=== PATIENT | male | born 1995 | race Caucasian/White ===

== ENCOUNTER 2020-10-05 03:24 | Outpatient (CLI) | payer BC, SELFPAY ==
[2020-10-05 12:53] LABS: Calculated LDL 90 mg/dL (<100); Cholesterol 187 mg/dL (<200); HDL Cholesterol 87 mg/dL (40-60); TSH 2.01 uIU/mL (0.36-3.74); Triglyceride 50 mg/dL (<150)
== END 2020-10-05 03:44 ==
PROVIDERS: PCP Nurse Practitioner Family; Visit Provider Nurse Practitioner Family
DX: Z13.220 Encounter for screening for lipoid disorders (principal); Z13.29 Encounter for screening for other suspected endocrine disorder; Z00.00 Encounter for general adult medical examination without abnormal findings
CPT/HCPCS: 36415; 80061; 84443